=== PATIENT | female | born 1995 ===

== ENCOUNTER 2016-12-13 19:46 | Day surgery (SDC) | payer MEDICAID ==
--- NOTE | 2016-12-13 21:38 | US ---
Name: TRICE CHAPA Exam: Gallbladder Ultrasound Comparison: None Clinical History: Right upper quadrant pain and elevated white blood cell count Findings: Ultrasound the gallbladder is performed. The gallbladder is mildly distended to 10.7 x 3.3 cm. Wall thickness is normal at 1.9 mm. There is no pericholecystic fluid. Stomach within the gallbladder neck, there is a 1.5 x 1.4 x 1.1 cm calculus. There is no pericholecystic fluid. Common bile duct is normal 3.1 mm. The ultrasound Wells sign is negative. Impression: 1.5 cm gallstone stuck within the gallbladder neck. There is mild gallbladder distention. At this point, there is no wall thickening or pericholecystic fluid. Note: The above report was uploaded to [facility]'s electronic medical records system at 2134 hours.
[2016-12-13] MEDS ORDERED: ONDANSETRON 4 MG/2ML 2 ML VIAL ONE (22:02)
[2016-12-13] MEDS ORDERED: SODIUM CHLORIDE 0.9% 1,000 ML ONE (22:02)
[2016-12-13] MEDS ORDERED: HYDROMORPHONE HCL 1 MG/ML SYRINGE ONE (22:03)
[2016-12-13] MEDS ORDERED: PIPERACILLIN SODIUM/TAZOBACTAM 4.5 G VIAL IV ONE (22:05)
[2016-12-13] MEDS ORDERED: SODIUM CHLORIDE 0.9% 100 ML IV ONE (22:05)
[2016-12-13] MEDS ORDERED: ACETAMINOPHEN 325 MG TABLET PO PRN (22:37)
[2016-12-13] MEDS ORDERED: BLISTEX LIPSTICK 1 EACH TP PRN (22:37)
[2016-12-13] MEDS ORDERED: ONDANSETRON 4 MG/2ML 2 ML VIAL IV PRN (22:37)
[2016-12-13] MEDS ORDERED: MAG HYDROX/AL HYDROX/SIMETH 30 ML UDCUP PO PRN (22:37)
[2016-12-13] MEDS ORDERED: MENTHOL/CETYLPYRD 1 EACH LOZENGE PO PRN (22:37)
[2016-12-13] MEDS ORDERED: PIPERACILLIN-TAZO PREMIX BAG 3.375 G in Premix (D5W) 50 ml 1 EACH IV SCH (22:37)
[2016-12-13 22:39] VITALS: BMI 33.9
[2016-12-13] MEDS ORDERED: PUMP TUBING ONE (22:47)
[2016-12-13] MEDS: LACTATED RINGERS 1,000 ML IV SCH (23:09)
[2016-12-13] MEDS: HYDROMORPHONE HCL 1 MG/ML SYRINGE IV PRN (23:10)
[2016-12-14] MEDS ORDERED: PIPERACILLIN-TAZO PREMIX BAG 50 ML IV ONE (03:46)
[2016-12-14] MEDS ORDERED: PIPERACILLIN-TAZO PREMIX BAG 3.375 G in Premix (D5W) 50 ml 1 EACH IV SCH (04:00)
[2016-12-14 05:41] LABS: HEMATOCRIT 36.5 % (37.0-47.0); HEMOGLOBIN 11.8 gm/l (12.0-16.0); MEAN CELL VOLUME 83.9 fl (81.0-99.0); MEAN CORPUSCULAR HEMOGLOBIN 27.1 pg (27.0-31.0); MEAN CORPUSCULAR HGB CONC 32.3 g/dl (33.0-37.0); RED CELL DISTRIBUTION WIDTH 13.2 % (11.5-14.5)
[2016-12-14 06:05] LABS: ALB/GLOB RATIO 1.1 (>1.0); ALBUMIN 3.4 gm/dL (3.5-5.7); CALCIUM 8.3 mg/dL (8.6-10.3)
[2016-12-14] MEDS ORDERED: IOPAMIDOL 300 (61%) 30 ML SDV ONE (07:10)
[2016-12-14] MEDS ORDERED: SODIUM CHLORIDE 0.9% 50 ML ONE (07:10)
[2016-12-14] MEDS ORDERED: BUPIVACAINE 0.5% W/EPI SDV 30 ML VIAL ONE (07:10)
[2016-12-14] MEDS ORDERED: LACTATED RINGERS 1,000 ML ONE (07:29)
[2016-12-14] MEDS ORDERED: ONDANSETRON 4 MG/2ML 2 ML VIAL ONE (07:29)
[2016-12-14] MEDS ORDERED: KETOROLAC TROMETHAMINE 30 MG/ML 1 ML VIAL ONE ×2 (07:29→09:20)
[2016-12-14] MEDS ORDERED: MIDAZOLAM HCL 1 MG/ML 2ML VIAL ONE (07:29)
[2016-12-14] MEDS ORDERED: NEOSTIGMINE METHYLSULFATE 1 MG/ML DOSE ONE ×3 (07:29→09:20)
[2016-12-14] MEDS ORDERED: LIDOCAINE 2% (MULTI DOSE) 10 ML VIAL ONE (07:29)
[2016-12-14] MEDS ORDERED: PROPOFOL 20 ML IV ONE (07:29)
[2016-12-14] MEDS ORDERED: DEXAMETHASONE SOD PHOS 4 MG/1 ML VIAL ONE (07:29)
[2016-12-14] MEDS ORDERED: FENTANYL 5 ML ONE (07:29)
[2016-12-14] MEDS ORDERED: METOCLOPRAMIDE HCL 5 MG/ML 2ML VIAL ONE (07:29)
[2016-12-14] MEDS ORDERED: GLYCOPYRROLATE 0.2 MG/ML 1ML VIAL ONE ×2 (07:29→09:20)
[2016-12-14] MEDS ORDERED: FENTANYL 100 MCG/2 ML VIAL IV PRN (08:39)
[2016-12-14] MEDS ORDERED: HYDROMORPHONE HCL 1 MG/ML SYRINGE IV PRN (08:39)
[2016-12-14] MEDS ORDERED: PROMETHAZINE HCL 25 MG/ML VIAL IM PRN (08:39)
[2016-12-14] MEDS ORDERED: NALOXONE HCL 0.4 MG/ML VIAL IV PRN (08:39)
[2016-12-14] MEDS ORDERED: ATROPINE SULFATE 0.4 MG/1 ML VIAL IV PRN (08:39)
[2016-12-14] MEDS ORDERED: ONDANSETRON 4 MG/2ML 2 ML VIAL IV PRN (08:39)
[2016-12-14] MEDS ORDERED: LACTATED RINGERS 1,000 ML IV SCH (08:45)
[2016-12-14] MEDS ORDERED: SUCCINYLCHOLINE CHL 20 MG/ML DOSE ONE (09:20)
--- NOTE | 2016-12-14 09:23 | RAD ---
CHOLANGIOGRAM-OPERATIVE HISTORY: Laparoscopic cholecystectomy. COMPARISONS: None. FINDINGS: 3 fluoroscopic images were submitted for review demonstrating injection of the cystic duct stump. There is contrast identified within the extrahepatic biliary tree and a portion of the intrahepatic biliary tree. No discrete filling defects are identified. Flow of contrast is noted into the duodenal C-sweep. A total of 14 seconds of fluoroscopy was utilized for the examination. IMPRESSION: 1. Intraoperative fluoroscopy following cholecystectomy with no retained filling defects observed and flow of contrast noted into the duodenal C-sweep.
[2016-12-14] MEDS ORDERED: PIPERACILLIN SODIUM/TAZOBACTAM 3.375 G in NS 0.9% (MINI-BAG PLUS) 50 ML IV SCH (10:30)
[2016-12-14] MEDS ORDERED: PUMP TUBING ONE (10:33)
[2016-12-14] MEDS: LACTATED RINGERS 1,000 ML IV SCH (10:41)
--- NOTE | 2016-12-14 10:55 | HP ---
TRICE GREEN [id number] DATE OF ADMISSION: 12/14/2016 CHIEF COMPLAINT: Abdominal pain. HISTORY OF PRESENT ILLNESS: This is a 21-year-old female who presented to the emergency room with epigastric and right upper quadrant abdominal pain. It started at 3 o'clock on the day of admission. It appeared she had nausea, with vomiting, no fevers. She has had similar pain before, but it always resolved within an hour. This pain was persistent. She was evaluated in the emergency room, and an ultrasound of the pain. An ultrasound showed evidence of stone lodged in the neck of the gallbladder with no signs of pericholecystic fluid, or wall thickening, or biliary ductal dilation. Surgery was consulted. PAST MEDICAL HISTORY: None. PAST SURGICAL HISTORY: None. CURRENT MEDICATIONS: None. ALLERGIES: NONE KNOWN. FAMILY HISTORY: Grandmother may have gallbladder problems. SOCIAL HISTORY: She lives with her boyfriend. She is accompanied by the boyfriend and her sister. She does not smoke. She reports occasional alcohol use and denies drug use. REVIEW OF SYSTEMS: Constitutional: No complaints. Eyes: No complaints. Ears, nose, throat: No complaints. Cardiac: No complaints. Pulmonary: No complaints. Gastrointestinal: As above. Genitourinary: No complaints. Gynecologic: No complaints. Musculoskeletal: No complaints. Neurologic: No complaints. Endocrine: No complaints. Hematologic: No complaints. Psychiatric: No complaints. PHYSICAL EXAMINATION: VITAL SIGNS: Temperature is 98.2. Pulse is 71. Blood pressure is 123/79. Respirations are 16. O2 saturation is 100% on room air. GENERAL: She is awake and alert, and in no acute distress. HEENT: Head is atraumatic, normocephalic. Pupils are equal. Sclera is nonicteric. Oropharynx, no exudate, or erythema seen. NECK: Supple without palpable lymphadenopathy, or thyromegaly. LUNGS: Clear to auscultation. Normal respiratory effort. CARDIAC: Regular rate and rhythm. No murmurs heard. ABDOMEN: Soft, nondistended. She is tender in the right upper quadrants. She has a Wells sign. No masses are palpable. No organomegaly is appreciated. PELVIC: Not performed. RECTAL: Not performed. EXTREMITIES: Without cyanosis, clubbing or edema. NEUROLOGIC: She is alert and oriented. Sensation grossly intact at all extremities. PSYCHIATRIC: Shows no signs of anxiety, or depression. She appears able to make informed medical decisions. LABORATORIES: Sodium is 139, potassium 3.5, chloride 105, bicarbonate 25, BUN 9, creatinine 0.6, and glucose 103. Albumin is 3.4. Total bilirubin is 0.6. AST is 90. ALT is 77. Alkaline phosphatase is 62. White blood cell count is elevated at 14.3. Hemoglobin is 11.8, and platelets are 326. ASSESSMENT: Acute cholecystitis with cholelithiasis. PLAN: I have recommended cholecystectomy. We have discussed the procedure of laparoscopic and possible open cholecystectomy. We discussed risks of bleeding, infection, injury to the liver, common bile duct, and the possible to convert to an open procedure. She expressed understanding and is willing to proceed. We have started her on Zosyn in the emergency room, and we will proceed to surgery when an operating room is available. JOB #: [id number] WILLOW/marta
[2016-12-14] MEDS: HYDROMORPHONE HCL 1 MG/ML SYRINGE IV PRN (11:46)
--- NOTE | 2016-12-14 12:59 | OP ---
TRICE GREEN [id number] DATE OF OPERATION: 12/13/2016 PREOPERATIVE DIAGNOSIS: Acute cholecystitis with cholelithiasis. POSTOPERATIVE DIAGNOSIS: Acute cholecystitis with cholelithiasis with intraoperative cholangiogram. PROCEDURE PERFORMED: Laparoscopic cholecystectomy. SURGEON: Zaki Azevedo MD FIRE ALARM INSTALLER: Marylin Oneal ANESTHESIA: General endotracheal with Osman Chandana. INDICATIONS: This is a 21-year-old female who presents to the emergency room with persistent right upper quadrant abdominal pain. It appeared she had leukocytosis, and an ultrasound that showed a stone lodged in the neck of the gallbladder. DESCRIPTION OF PROCEDURE: With informed consent she was taken to the operating room. She was laid supine on the operating room table. General endotracheal anesthetic was administered. The abdomen was prepped and draped in the usual fashion. Local anesthetic was administered below the umbilicus. Incision was made. The fascia was grasps with Jonh clamps and divided with Curve Dorado scissors. Sutures of Surgilon were placed on the fascial edges and Zabala port was placed. A pneumoperitoneum was created. Local anesthetic was administered in the mid epigastrium and along the right lateral abdominal wall. Incisions were made, and 5 mm ports were placed. There were adhesions of omentum around a thick tense gallbladder. I aspirated some bile from the gallbladder. It was then grasped and retracted cephalad. The infundibulum had a large stone with quite a bit of pericholecystic fluid and edema. Eventually we dissected that free, and retracted it laterally. The cystic duct was identified and dissected free. A clip was placed. The duct was partially transected. A cholangiogram catheter was placed. Cholangiogram was obtained showing flow of contrast into the duodenum without filling defect. Contrast was seen refluxing up into the hepatic ducts. The catheter was removed, two clips were placed on the cystic duct stump, and it was completely transected. Next the cystic artery was identified and dissected free. Three clips were placed and it was transected leaving two clips on the stump. The gallbladder was then taken off the liver bed using electrocautery. We did have a moderate amount of edema in the intrahepatic gallbladder. Eventually the gallbladder was and placed within an Endocatch bag and removed through the infraumbilical port site. The right upper quadrant was irrigated. We appeared to have adequate hemostasis. The ports were removed and pneumoperitoneum evacuated. The infraumbilical fascial defect was closed with figure of eight sutures of 0 Surgilon. The other fascial defects were small. Skin was closed with subcuticular 4-0 Monocryl. Mastisol and Steri-Strips were placed. Sterile dressings were applied. She tolerated the procedure and was taken to the recovery room in stable condition. Note was made that needle, instrument, and lap counts were reported as correct at the time of closure. JOB #: [id number] WILLOW/marta
[2016-12-14] MEDS ORDERED: OXYCODONE HCL 5 MG TABLET PO PRN (13:32)
[2016-12-14 15:21] VITALS: BP 112/65
--- NOTE | 2016-12-16 13:26 | SURGPATH ---
[facility] [address] [place] [id number] Patient Name: TRICE GREEN MR#: [id number] : 1995 Gender: F Specimen #: [id number] Collected: 12/14/2016 Received: 12/15/2016 Reported: 12/16/2016 Submitting Phys: INGA TAVARES Copy To Phys: [facility] Clinical History / Pre-Operative Diagnosis: Acute cholecystitis, cholelithiasis Specimen Source / Surgical Procedure Performed: Gallbladder and contents Interpretation: GALLBLADDER, CHOLECYSTECTOMY: - ACUTE AND CHRONIC CHOLECYSTITIS AND CHOLELITHIASIS Electronically Signed Out Sb Arizmendi M.D. Gross Description: The specimen is received in formalin labeled with the patient's name and "gallbladder". The specimen consists of an 8.0 x 3.0 x 2.0 cm intact gallbladder. The mucosa is kumar and velvety with yellow speckling. There is a yellow ovoid 1.8 cm stone. The wall is edematous. 1A exhibit display representative including cystic duct DEANNA Demarco Microscopic Description: A slide contains multiple portions of gallbladder. Within the mucosa there are a mixture of chronic and acute inflammatory cells with reactive stromal changes. Dysplasia and malignancy are not identified. 1: 66010 K81.2
== END 2016-12-14 15:40 | disposition home or self-care (01) ==
LOC: ED 19:46 → MS 22:01 → SDC 22:01 → UNDOADMOB 22:01 → MS 22:01 → SDC 12-14 15:40
PROVIDERS: ATTEND Surgery
PROC: 0FT44ZZ Resection of Gallbladder, Percutaneous Endoscopic Approach (ICD-10-PCS; principal; 2016-12-13)
PROC: BF141ZZ Fluoroscopy of Gallbladder, Bile Ducts and Pancreatic Ducts using Low Osmolar Contrast (ICD-10-PCS; 2016-12-13)
DX: K80.00 Calculus of gallbladder with acute cholecystitis without obstruction (principal)
CPT/HCPCS: 47563; 83690; 84703; 85027; 80053; 36415; 74300; 76705; 96375 ×2; 99285 ×2; 96374; J0461; J1170 ×3; J3010; J1100; A9270; J2765; J1885 ×2; J2250; J2405 ×3; J2543 ×4; J7120 ×2; J7030 ×2; J7050; Q9967; J2001